=== PATIENT | female | born 1995 | race Hispanic/Latino ===

== ENCOUNTER → 2024-07-24 | Outpatient (CLI) | payer OTHER ==
--- NOTE | 2024-07-24 10:52 | HMCIMG ---
US TRANSVAGINAL NON-OB REASON: secondary amenorrhea COMPARISON: None TECHNIQUE: Transvaginal pelvic sonogram was performed. FINDINGS: Uterus is 5.9 x 3.7 x 4.0 cm. Endometrium is 5 mm. There are no myometrial or endometrial masses. Both ovaries appear normal. There are no adnexal masses. There are no cysts. There is no free fluid in the cul-de-sac. IMPRESSION: 1. Normal transvaginal pelvic sonogram.
== END | disposition home or self-care (01) ==
LOC: RAH 08:54
PROVIDERS: ATTEND Obstetrics & Gynecology
DX: N91.1 Secondary amenorrhea (principal)
CPT/HCPCS: 76830